=== PATIENT | male | born 1975 ===

== ENCOUNTER 2024-10-27 21:08 | Emergency (ER) | payer BC ==
[~2024-10-27] VITALS: Ht 175.3 cm; Wt 81.6 kg
[2024-10-27 21:16] VITALS: BP 134/21
[2024-10-27] MEDS ORDERED: HYDROMORPHONE 1 MG/1 ML DISP.SYRIN ONE (21:41)
[2024-10-27] MEDS ORDERED: DICYCLOMINE HCL LIQ 10 MG/5 ML UDC ONE (21:41)
[2024-10-27] MEDS ORDERED: ONDANSETRON 4 MG/2 ML VIAL ONE (21:41)
[2024-10-27 21:43] LABS: PLATELET COUNT (AUTO) 221 K/uL (152-348); RED BLOOD CELL COUNT(AUTO) 5.01 MIL/uL (4.06-5.63); RED CELL DISTRIBUTION WIDTH 13.7 % (12.1-16.2); WHITE BLOOD COUNT (AUTO) 11.6 K/uL (3.6-10.2)
[2024-10-27] MEDS: HYDROMORPHONE 1 MG/1 ML DISP.SYRIN IV ONE (21:46)
[2024-10-27] MEDS: DICYCLOMINE HCL LIQ 10 MG/5 ML UDC PO ONE (21:46)
[2024-10-27] MEDS: IV NORMAL SALINE 1000 ML BAG IV ONE (21:46)
[2024-10-27] MEDS: ONDANSETRON 4 MG/2 ML VIAL IV ONE (21:46)
[2024-10-27 21:53] LABS: CREATININE 1.4 mg/dL (0.6-1.3); SODIUM SERUM 140.0 mmol/L (136-145); UREA NITROGEN, BLOOD 16.0 mg/dL (7-18)
[2024-10-27 21:58] LABS: ASPARTATE AMINOTRANSFERASE 11.0 U/L (15-37); TOTAL PROTEIN, SERUM 7.5 g/dL (6.4-8.2)
[2024-10-27] MEDS ORDERED: DICY20TA11 PO (23:26)
[2024-10-27] MEDS ORDERED: ONDA4TAB11 PO (23:26)
[2024-10-27] MEDS: POTASSIUM CHLORIDE 20 MEQ TAB.PRT.SR PO ONE (23:29)
[2024-10-27] MEDS ORDERED: POTASSIUM CHLORIDE 20 MEQ TAB.PRT.SR ONE ×2 (23:29→23:33)
[2024-10-27 23:45] VITALS: BP 134/21; TEMP 98; O2SAT 100
== END 2024-10-27 23:45 | disposition home or self-care (01) ==
LOC: ER 21:08
DX: R10.84 Generalized abdominal pain (principal); R19.7 Diarrhea, unspecified; I51.9 Heart disease, unspecified
CPT/HCPCS: 99285; 96374; 76705; 96361; 96375; 80076; 80048; 83690; 85025; 36415; J2405; J1171; J7040; A4606; A4663